=== PATIENT | male | born 1945 | race Caucasian/White ===

== ENCOUNTER → 2019-01-30 | Outpatient (REF) | payer MEDICARE | LOC: M LAB REF 12:24 | PROVIDERS: ATTEND Internal Medicine | DX: E11.42 Type 2 diabetes mellitus with diabetic polyneuropathy (principal) ==

== ENCOUNTER → 2019-02-07 | Outpatient (CLI) | payer MEDICARE ==
[2019-02-07 13:08] LABS: FOLATE 8.5 NG/ML; RHEUMATOID FACTOR QUANT < 10.0 IU/ML (<15.0); TOTAL PROTEIN 6.7 GM/DL (6.4-8.2); VITAMIN B12 LEVEL 415 PG/ML
[2019-02-07 14:15] LABS: HEMOGLOBIN A1c 6.2 %
[2019-02-08 10:11] LABS: ALBUMIN 4.15 GM/DL (3.29-5.55); ALBUMIN % 61.9 % (55.8-66.1); ALPHA-1-GLOBULINS 0.27 GM/DL (0.17-0.41); ALPHA-2-GLOBULINS 0.77 GM/DL (0.42-0.99); ALPHA-2-GLOBULINS % 11.5 % (7.1-11.8); BETA-1-GLOBULINS 0.46 GM/DL (0.28-0.60); BETA-1-GLOBULINS % 6.8 % (4.7-7.2); BETA-2-GLOBULINS 0.38 GM/DL (0.19-0.55); BETA-2-GLOBULINS % 5.6 % (3.2-6.5); GAMMA GLOBULIN % 10.2 % (11.1-18.8); GAMMA GLOBULINS 0.68 GM/DL (0.65-1.58)
[2019-02-11 00:06] LABS: ANTINUCLEAR ANTIBODIES DIRECT Negative (Negative); Lyme Disease IgG/IgM Antibodie <0.91 ISR (0.00-0.90); Lyme Disease IgM Ab Quantitati <0.80 index (0.00-0.79); VITAMIN E(ALPHA TOCOPHEROL) 12.3 mg/L (9.0-29.0); VITAMIN E(GAMMA TOCOPHEROL) 1.3 mg/L (0.5-4.9)
[2019-02-13 10:32] LABS: DRVV SCREEN 38.8 SEC
[2019-02-13 10:33] LABS: PTT LUPUS TYPE ANTICOAG SCREEN 0.9 (0-1.2)
[2019-02-13 14:13] LABS: VITAMIN B1 LEVEL WHOLE BLOOD 89.8 nmol/L (66.5-200.0)
== END ==
LOC: M WUC 08:55
PROVIDERS: ATTEND Psychiatry & Neurology Neurology
DX: M54.5 Low back pain (principal); G62.9 Polyneuropathy, unspecified

== ENCOUNTER → 2019-05-10 | Outpatient (CLI) | payer MEDICARE | LOC: M WUC 12:20 | PROVIDERS: ATTEND Urology | DX: R39.12 Poor urinary stream (principal) ==

== ENCOUNTER → 2019-05-10 | Outpatient (CLI) | payer MEDICARE ==
[2019-05-10 17:46] LABS: CHOLESTEROL RISK RATIO 2.895 (<5)
== END ==
LOC: M WUC 12:15
PROVIDERS: ATTEND Internal Medicine Cardiovascular Disease
DX: Z01.810 Encounter for preprocedural cardiovascular examination (principal); E78.00 Pure hypercholesterolemia, unspecified; I25.5 Ischemic cardiomyopathy; R39.12 Poor urinary stream

== ENCOUNTER → 2021-02-17 | Outpatient (CLI) | payer MEDICARE ==
--- NOTE | 2021-02-19 14:57 | SLEEPCENT ---
DATE: 02/17/2021 ORDERED BY: Marco A Orellana Nocturnal polysomnography was performed for evaluation of sleep physiology in this patient with a history of excessive somnolence, nonrestorative sleep, and a prior diagnosis of obstructive sleep apnea syndrome. There was 7 hours and 58 minutes of data reviewed. There was 176.5 minutes of sleep identified. Sleep latency was prolonged at 165 minutes. REM latency was normal at 92 minutes. Sleep architecture showed fragmentation with periods of wake. There was one REM cycle. Overall sleep efficiency was 37.5%. The electrocardiogram showed a sinus rhythm with wide complexes. Average heart rate 55 beats per minute. EEG showed normal waveforms for wake and sleep. There were 189 respiratory events identified of 10 seconds in duration or greater for an apnea-hypopnea index of 64.2. The events were obstructive, not exclusive to sleep stage nor body position. Arousals from respirations events occurred 27.5 times per hours, and oxygen desaturations were seen into the low 80s. There was some minor activity in the limb leads. Limb movement arousal index was only 1.4. IMPRESSION: Severe obstructive sleep apnea syndrome (G47.33). Apnea-hypopnea index 64.2. RECOMMENDATION: The patient should be encouraged to return to the sleep disorder center at his earliest convenience for pressure therapy. In the interim, alcohol and sedative avoidance should be practiced and caution exercised during the operation of motor vehicles.
== END ==
LOC: M SLEEP 20:00
PROVIDERS: ATTEND Physician Assistant
DX: G47.33 Obstructive sleep apnea (adult) (pediatric) (principal)

== ENCOUNTER → 2022-05-04 | Outpatient (CLI) | payer MEDICARE, BC | LOC: M PLAIMG 09:01 | DX: M51.26 Other intervertebral disc displacement, lumbar region (principal); M99.63 Osseous and subluxation stenosis of intervertebral foramina of lumbar region ==

== ENCOUNTER → 2023-06-07 | Outpatient (CLI) | payer MEDICARE, BC ==
[~2023-06-07] MED LIST: ISOVUE-370 76% 100ML VIAL As Ordered ONE
== END ==
LOC: M RAD 09:17
PROVIDERS: ATTEND Physician Assistant
DX: I65.21 Occlusion and stenosis of right carotid artery (principal)
CPT/HCPCS: 70496; 70498; Q9967

== ENCOUNTER → 2024-01-04 | Outpatient (REF) | payer MEDICARE ==
[2024-01-04 18:46] LABS: PERCENT SATURATION 11.3 % (19.7-50.0)
[2024-01-04 18:49] LABS: FERRITIN 17.4 NG/ML (10.5-307.3)
== END ==
LOC: M LAB REF 16:46
PROVIDERS: ATTEND Internal Medicine
DX: D50.9 Iron deficiency anemia, unspecified (principal)

== ENCOUNTER → 2024-08-14 | Outpatient (REF) | payer MEDICARE, BC ==
[2024-08-14 18:58] LABS: PERCENT SATURATION 17.3 % (19.7-50.0)
[2024-08-14 19:00] LABS: FERRITIN 64.6 NG/ML (10.5-307.3)
== END ==
LOC: M LAB REF 16:39
PROVIDERS: ATTEND Internal Medicine
DX: D50.9 Iron deficiency anemia, unspecified (principal); R06.02 Shortness of breath